=== PATIENT | female | born 1995 | race Caucasian/White ===

== ENCOUNTER 2017-07-16 12:51 | Emergency (ER) | payer BC ==
[2017-07-16] MEDS ORDERED: LORazepam 1 MG Tab PO ONE (13:17)
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
== END 2017-07-16 14:50 | disposition home or self-care (01) ==
LOC: JD.ED 12:51
DX: F41.0 Panic disorder [episodic paroxysmal anxiety] (principal); Z88.1 Allergy status to other antibiotic agents
CPT/HCPCS: 99284; A9270-GY